=== PATIENT | male | born 1995 | race Caucasian/White ===

== ENCOUNTER 2017-02-24 05:16 | Emergency (ER) | payer SELFPAY ==
--- NOTE | 2017-02-24 05:38 | PDOC ---
[id number] is a 21 year old overweight male, with a significant past medical history of hypertension (3 years, untreated), who presents to the emergency department with dizziness, nausea, and vomiting since waking up about an hour ago. The patient reports the room is spinning. He reports feeling nauseous feeling clammy. The patient reports eating potato chips last night before bed. He reports having high blood pressure right now and experiencing high blood pressure in the past. He states he has been trying to manage his hypertension with diet and exercise before managing with medication, but has failed to get his hypertension under control. He denies chest pain, shortness of breath, headache. He denies fever, chills, diarrhea and constipation. He denies dysuria, frequency, urgency and hematuria. Allergies: NKDA Social history: denies toxic habits <Roseann Acharya - Last Filed: 02/24/17 05:49> <Dania Bueno - Last Filed: 03/03/17 05:33> - General Chief Complaint: Blood Pressure Problem Stated Complaint: VOMITING, DIZZINESS Time Seen by Provider: 02/24/17 05:38 Past History <Roseann Acharya - Last Filed: 02/24/17 05:49> <Dania Bueno - Last Filed: 03/03/17 05:33> - Past Medical History Allergies/Adverse Reactions: Allergies Allergy/AdvReac Type Severity Reaction Status Date / Time No Known Allergies Allergy Verified 02/24/17 05:38 Home Medications: Ambulatory Orders Meclizine HCl [Antivert -] 25 mg PO TID PRN #21 tablet 02/24/17 Review of Systems - Review of Systems Able to Perform ROS?: Yes Comments:: 02/24/17 05:49 GENERAL/CONSTITUTIONAL: No fever or chills. No weakness. HEAD, EYES, EARS, NOSE AND THROAT: No change in vision. No ear pain or discharge. No sore throat. CARDIOVASCULAR: No chest pain or shortness of breath. RESPIRATORY: No cough, wheezing, or hemoptysis. GASTROINTESTINAL: (+) nausea, vomiting. No diarrhea or constipation. GENITOURINARY: No dysuria, frequency, or change in urination. MUSCULOSKELETAL: No joint or muscle swelling or pain. No neck or back pain. SKIN: No rash NEUROLOGIC: (+) vertigo. No headache, , loss of consciousness, or change in strength/sensation. ENDOCRINE: No increased thirst. No abnormal weight change. HEMATOLOGIC/LYMPHATIC: No anemia, easy bleeding, or history of blood clots. ALLERGIC/IMMUNOLOGIC: No hives or skin allergy. <Roseann Acharya - Last Filed: 02/24/17 05:49> *Physical Exam - Vital Signs Last Vital Signs Temp Pulse Resp BP Pulse Ox 85 18 170/110 98 02/24/17 05:38 02/24/17 05:38 02/24/17 05:38 02/24/17 05:38 - Physical Exam Comments: 02/24/17 05:50 GENERAL: (+) Overweight. Awake, alert, and fully oriented, in no acute distress HEAD: No signs of trauma EYES: PERRLA, EOMI, sclera anicteric, conjunctiva clear ENT: Auricles normal inspection, hearing grossly normal, nares patent, oropharynx clear without exudates. Moist mucosa NECK: Normal ROM, supple, no lymphadenopathy, JVD, or masses LUNGS: Breath sounds equal, clear to auscultation bilaterally. No wheezes, and no crackles HEART: Regular rate and rhythm, normal S1 and S2, no murmurs, rubs or gallops ABDOMEN: Soft, nontender, normoactive bowel sounds. No guarding, no rebound. No masses EXTREMITIES: Normal range of motion, no edema. No clubbing or cyanosis. No cords, erythema, or tenderness NEUROLOGICAL: Cranial nerves II through XII grossly intact. Normal speech, normal gait SKIN: (+) Cool and clammy. Dry, normal turgor, no rashes or lesions noted. <Roseann Acharya - Last Filed: 02/24/17 05:49> ED Treatment Course - LABORATORY CBC & Chemistry Diagram: 02/24/17 05:50 02/24/17 05:50 <Dania Bueno - Last Filed: 03/03/17 05:33> Medical Decision Making - Medical Decision Making 02/24/17 05:56 Pt is obese and comes with nausea, cold sweat and HTN. Pt was told that he has HTN 3 to 4 years ago, yet he never took meds for HTN. He has no other medical problems as per family. Pt ate a bag of potato chips last night and he eats salty foods. We discussed the importance of diet control. Pt was given SL NTG in the ER as well as HCT, aspirin and plavix, as his EKG demonstrates diffuse ST eloevation - unclear if this is early repol or pericarditis, or cardiac CA; Pt has no complaints of chest pain. Only nausea and sweats. Pt has no old EKG for comparison. 02/24/17 06:19 Pt will be signed out to the day ER doctor. 02/24/17 06:[address] pending CXR pending Labs pending <Dania Bueno - Last Filed: 03/03/17 05:33> *DC/Admit/Observation/Transfer - Attestations Scribe Attestion: 02/24/17 05:52 Documentation prepared by Roseann Acharya, acting as medical office technology instructor for Dania Bueno MD <Roseann Acharya - Last Filed: 02/24/17 05:49> <Dania Bueno - Last Filed: 03/03/17 05:33> Diagnosis at time of Disposition: Hypertension, Vertigo - Discharge Dispostion Disposition: HOME Condition at time of disposition: Improved - Prescriptions Prescriptions: Meclizine HCl [Antivert -] 25 mg PO TID PRN #21 tablet PRN Reason: Vertigo - Referrals Referrals: [facility] [Provider Group] - Patient Instructions Printed Discharge Instructions: DI for High Blood Pressure Additional Instructions: Return to the emergency department immediately with ANY new, persistent or worsening symptoms. You MUST call and follow up with your doctor tomorrow for further evaluation of your symptoms. Results were discussed with you. Please make sure your doctor reviews the results of your emergency evaluation. If you had any xrays during your visit, it was read preliminarily by myself, a Radiologist will review it and if there are any additional findings we will call you. Print Language: MALAY
[2017-02-24] MEDS ORDERED: NITROGLYCERIN SUBLINGUAL 1/150 0.4 MG TAB SL ONE (05:48)
[2017-02-24] MEDS ORDERED: HYDROCHLOROTHIAZIDE 50 MG TABLET PO ONE (05:49)
[2017-02-24 05:58] VITALS: BMI 36.9
[2017-02-24] MEDS ORDERED: ASPIRIN 81 MG CHEWABLE TABLETS PO ONE (05:59)
[2017-02-24] MEDS ORDERED: CLOPIDOGREL BISULFATE 300 MG TABLET PO ONE (05:59)
[2017-02-24] MEDS ORDERED: METOCLOPRAMIDE HCL INJECTION 10 MG/2 ML VIAL ONE (06:05)
[2017-02-24] MEDS ORDERED: METOCLOPRAMIDE HCL INJECTION 10 MG/2 ML VIAL IVPB ONE (06:12)
[2017-02-24 06:30] LABS: BASOPHIL 0.4 % (0-2.0); EOSINOPHIL 3.3 % (0-4.5); MCHC 33.9 g/dl (32.0-35.9); MEAN CELL VOLUME 82.7 fl (80-96); MEAN PLT VOLUME 7.6 fl (7.5-11.1); NEUTROPHILS 40.9 % (42.8-82.8); PLATELET COUNT 319 K/MM3 (134-434); RDW 13.7 % (11.9-15.9)
[2017-02-24 06:52] LABS: INR 0.97 (0.82-1.09); PROTHROMBIN TIME (PATIENT) 10.7 SEC (9.98-11.88)
[2017-02-24 06:56] LABS: ANION GAP 12 (8-16); CALCIUM 9.1 mg/dL (8.5-10.1); CO2 28 mmol/L (21-32); CREATININE 0.9 mg/dL (0.7-1.3); GLUCOSE,RANDOM 147 mg/dL (74-106); SGOT/AST 14 U/L (15-37); SGPT/ALT 34 U/L (12-78)
[2017-02-24 07:00] LABS: ALK PHOS 89 U/L (45-117); BILIRUBIN,TOTAL 0.4 mg/dL (0.2-1.0); TOT PROT 7.5 g/dl (6.4-8.2); TROPONIN I < 0.02 ng/ml (0.00-0.05)
--- NOTE | 2017-02-24 07:20 | PDOC ---
*Physical Exam - Vital Signs Last Vital Signs Temp Pulse Resp BP Pulse Ox 85 18 170/110 98 02/24/17 05:38 02/24/17 05:38 02/24/17 05:38 02/24/17 05:38 ED Treatment Course - LABORATORY CBC & Chemistry Diagram: 02/24/17 05:50 02/24/17 05:50 - ADDITIONAL ORDERS Additional order review: Laboratory Results 02/24/17 02/24/17 05:50 05:50 INR 0.97 Sodium 142 Potassium 3.6 Chloride 102 Carbon Dioxide 28 Anion Gap 12 BUN 14 Creatinine 0.9 Creat Clearance w eGFR > 60 Random Glucose 147 H Calcium 9.1 Total Bilirubin 0.4 AST 14 L ALT 34 Alkaline Phosphatase 89 Creatine Kinase 368 H Troponin I < 0.02 Total Protein 7.5 Albumin 4.0 02/24/17 05:50 RBC 5.54 MCV 82.7 MCHC 33.9 RDW 13.7 MPV 7.6 Neutrophils % 40.9 L Lymphocytes % 46.8 H Monocytes % 8.6 Eosinophils % 3.3 Basophils % 0.4 - Medications Given in the ED: ED Medications Discontinued Medications Generic Name Dose Route Start Last Admin Trade Name Lexq PRN Reason Stop Dose Admin Metoclopramide HCl 10 mg 02/24/17 06:12 02/24/17 06:12 Reglan Injection - IVPB 02/24/17 06:13 10 mg NOW ONE Administration Nitroglycerin 0.4 mg 02/24/17 05:48 02/24/17 05:48 Nitrostat - SL 02/24/17 05:49 0.4 mg ONCE ONE Administration Medical Decision Making - Medical Decision Making 02/24/17 07:19 21y M hx of untreated htn presents with dizziness, diaphoresis, nausea. pt noted hypertensive upon arrival currently bp improved. Pt with labgs and CT which are unremarkable. on reexam pt still persistently nauseus, states he has some mid epigsatric pain that is worse when he is vomiting. pt denied any cp prior to arrival. pt did endorse feeling room psniining dizzines this morning prior to arrival - suspect posible vertigo will erassess 02/24/17 11:13 pt feeling improved currently astypomatic, not nauseus nor dizzy/vertiginous currently exam unremarkable including normal neuro exam and normal cerebellar exam. will obtain 2nd troponin and PMD fu 02/24/17 12:53 pt feeling improved trop neg x 2 ekg unchanged no cp currently suspect his sypmtoms secondary to vertigo - will give pt rx for meclizine will dc the pt with pmd fu to recheck his BP and possible start antihypertensives return precuations were discussed Will have the patient follow-up with his primary care doctor for further management of hypertension. I discussed the physical exam findings, ancillary test results and final diagnoses with the patient. I answered all of the patient's questions. The patient was satisfied with the care received and felt comfortable with the discharge plan and treatment plan. The patient will call their primary care physician within 24 hours to arrange follow-up and will return to the Emergency Department with any new, persistent or worsening symptoms. *DC/Admit/Observation/Transfer Diagnosis at time of Disposition: Vertigo Hypertension Qualifiers: Hypertension type: essential hypertension Qualified Code(s): I10 - Essential ( primary) hypertension - Discharge Dispostion Disposition: HOME Condition at time of disposition: Improved Admit: No - Prescriptions Prescriptions: Meclizine HCl [Antivert -] 25 mg PO TID PRN #21 tablet PRN Reason: Vertigo - Referrals Referrals: [facility] [Provider Group] - Patient Instructions Printed Discharge Instructions: DI for High Blood Pressure Additional Instructions: Return to the emergency department immediately with ANY new, persistent or worsening symptoms. You MUST call and follow up with your doctor tomorrow for further evaluation of your symptoms. Results were discussed with you. Please make sure your doctor reviews the results of your emergency evaluation. If you had any xrays during your visit, it was read preliminarily by myself, a Radiologist will review it and if there are any additional findings we will call you. Print Language: [place]
[2017-02-24] MEDS ORDERED: HYDROCHLOROTHIAZIDE 25 MG TABLET (FP) ONE (07:22)
[2017-02-24] MEDS ORDERED: CLOPIDOGREL BISULFATE 300 MG TABLET ONE (07:22)
[2017-02-24] MEDS ORDERED: ASPIRIN 81 MG CHEWABLE TABLETS ONE (07:22)
[2017-02-24 07:25] VITALS: PULSE 78
[2017-02-24] MEDS ORDERED: ONDANSETRON 4 MG/2 ML VIAL IVPUSH ONE (08:59)
[2017-02-24] MEDS ORDERED: MAG HYDROX/AL HYDROX/SIMETH 355 ML ORAL.SUSP PO ONE (08:59)
[2017-02-24] MEDS ORDERED: FAMOTIDINE 20 MG/50 ML IVPB 20 MG in PREMIX 50 IVPB ONE (08:59)
[2017-02-24] MEDS ORDERED: MAG HYDROX/AL HYDROX/SIMETH 30 ML UNIT-DOSE CUP ONE (09:18)
[2017-02-24] MEDS ORDERED: ONDANSETRON 4 MG/2 ML VIAL ONE (09:18)
[2017-02-24] MEDS ORDERED: FAMOTIDINE 20 MG/50 ML IVPB 50 ML IVPB ONE (09:18)
[2017-02-24 12:06] LABS: TROPONIN I < 0.02 ng/ml (0.00-0.05)
[2017-02-24] MEDS ORDERED: MECLIZINE HCL 25 MG TABLET (FP) PO ONE (13:00)
[2017-02-24 13:16] VITALS: BP 160/98
--- NOTE | 2017-02-25 17:40 | EKG ---
Test Reason : Blood Pressure : / mmHG Vent. Rate : 076 BPM Atrial Rate : 076 BPM P-R Int : 152 ms QRS Dur : 104 ms QT Int : 402 ms P-R-T Axes : 027 005 -04 degrees QTc Int : 452 ms NORMAL SINUS RHYTHM MINIMAL VOLTAGE CRITERIA FOR LVH, MAY BE NORMAL VARIANT NONSPECIFIC T WAVE ABNORMALITY ABNORMAL ECG WHEN COMPARED WITH ECG OF 24-FEB-2017 05:50, NO SIGNIFICANT CHANGE WAS FOUND Confirmed by IJEOMA RAJAN, LUISA ([id number]) on 02/25/2017 5:40:04 PM Referred By: Confirmed By:LUISA RAPHAEL MD
--- NOTE | 2017-02-25 17:43 | EKG ---
Test Reason : Blood Pressure : / mmHG Vent. Rate : 069 BPM Atrial Rate : 069 BPM P-R Int : 168 ms QRS Dur : 106 ms QT Int : 426 ms P-R-T Axes : 038 003 -04 degrees QTc Int : 456 ms NORMAL SINUS RHYTHM MINIMAL VOLTAGE CRITERIA FOR LVH, MAY BE NORMAL VARIANT ST ELEVATION, CONSIDER EARLY REPOLARIZATION, PERICARDITIS, OR INJURY NONSPECIFIC T WAVE ABNORMALITY ABNORMAL ECG NO PREVIOUS ECGS AVAILABLE Confirmed by IJEOMA RAJAN, LUISA ([id number]) on 02/25/2017 5:43:17 PM Referred By: Confirmed By:LUISA RAPHAEL MD
== END 2017-02-24 13:16 | disposition home or self-care (01) ==
LOC: JER 05:16
PROC: 3E033GC Introduction of Other Therapeutic Substance into Peripheral Vein, Percutaneous Approach (ICD-10-PCS; principal; 2017-02-24)
DX: I10 Essential (primary) hypertension (principal); R42 Dizziness and giddiness; E66.09 Other obesity due to excess calories; Z68.36 Body mass index [BMI] 36.0-36.9, adult
CPT/HCPCS: 36415; 70450-TC; 71020-TC; 80053; 82550; 82553; 83690; 84484; 85025; 85610; 85730; 93005; 93010; 99283-25